=== PATIENT | female | born 1955 | race Caucasian/White ===

== ENCOUNTER 2017-01-12 13:26 | Outpatient (CLI) | payer SELFPAY | END 2017-01-12 23:59 | DX: K21.9 Gastro-esophageal reflux disease without esophagitis (principal) ==

== ENCOUNTER 2017-01-15 13:28 | Outpatient (CLI) | payer SELFPAY | END 2017-01-15 13:29 | disposition home or self-care (01) | DX: R19.7 Diarrhea, unspecified (principal) ==

== ENCOUNTER 2019-01-23 10:21 | Outpatient (CLI) | payer SELFPAY ==
--- NOTE | 2019-01-23 12:15 | XRAY Report ---
Reason: R ANKLE PAIN Procedure Date: 01/23/2019 Accession Number: [id number] / [id number] Procedure: XRN - Ankle 3 View RT CPT Code: FULL RESULT: EXAM: RIGHT ANKLE RADIOGRAPHY EXAM DATE: 01/23/2019 10:56 AM. CLINICAL HISTORY: Right ankle pain. COMPARISON: None. TECHNIQUE: 3 views. FINDINGS: Bones: There is mild inferior calcaneal spurring. There is a nonacute appearing nonunited fracture fragment at the distal tip of the fibula. Joints: Normal. No effusion. No subluxations. The ankle mortise is normally aligned. Soft Tissues: Soft tissue swelling is noted about the lateral ankle. IMPRESSION: Suspect acute on chronic ligamentous injury in the region of previous trauma along the lateral ankle. RADIA
== END 2019-01-23 10:22 | disposition home or self-care (01) ==
LOC: DI.N 10:21
PROVIDERS: ATTEND Specialist
DX: M25.571 Pain in right ankle and joints of right foot (principal)

== ENCOUNTER 2019-02-08 11:32 | Outpatient (CLI) | payer SELFPAY ==
--- NOTE | 2019-02-09 19:50 | XRAY Report ---
Reason: RIGHT FIBULA PAIN Procedure Date: 02/08/2019 Accession Number: [id number] / [id number] Procedure: XR - Tib/Fib RT CPT Code: FULL RESULT: EXAM: RIGHT TIBIA/FIBULA RADIOGRAPHY EXAM DATE: 02/08/2019 11:48 AM. CLINICAL HISTORY: RIGHT FIBULA PAIN. COMPARISON: ANKLE 3 VIEW RT 01/23/2019 10:56 AM. TECHNIQUE: 2 views. FINDINGS: Bones: Well-corticated ossicle seen inferior to the medial and lateral malleoli. No acute appearing fracture. No bone lesion. Plantar spur. Suspect variant angulation of the proximal fibula. Joints: No Dislocation. Preserved joint spaces. Soft Tissues: Ankle swelling, greatest laterally IMPRESSION: 1. No acute appearing fracture. No bone lesion. 2. Well-corticated ossicle seen inferior to the medial and lateral malleoli may be sequela of remote trauma. 3. Ankle swelling, greatest laterally RADIA
== END 2019-02-08 11:33 | disposition home or self-care (01) ==
LOC: DI 11:32
PROVIDERS: ATTEND Specialist
DX: M79.661 Pain in right lower leg (principal); M25.471 Effusion, right ankle

== ENCOUNTER 2019-12-22 16:47 | Outpatient (CLI) | payer OTHER | END 2019-12-22 16:48 | disposition home or self-care (01) | LOC: COV 16:47 | PROVIDERS: ATTEND Family Medicine | DX: R05 Cough (principal); R50.9 Fever, unspecified | CPT/HCPCS: 81599 ==

== ENCOUNTER 2020-01-30 12:45 | Outpatient (CLI) | payer OTHER ==
[2020-01-30 17:51] LABS: BASOPHILS # (AUTO) 0.1 10^3/uL (0.0-0.1); BASOPHILS % (AUTO) 0.8 %; EOSINOPHILS # (AUTO) 0.2 10^3/uL (0.0-0.7); EOSINOPHILS % (AUTO) 2.3 %; HGB - HEMOGLOBIN 13.9 g/dL (12.0-16.0); LYMPHOCYTES # (AUTO) 2.3 10^3/uL (1.5-3.5); LYMPHOCYTES % (AUTO) 30.2 %; MEAN CORPUSCULAR HEMOGLOBIN 28.3 pg (27.0-31.0); MEAN CORPUSCULAR HGB CONC 31.9 g/dL (32.0-36.0); MEAN CORPUSCULAR VOLUME 88.8 fL (81.0-99.0); MEAN PLATELET VOLUME 9.6 fL (7.9-10.8); MONOCYTES # (AUTO) 0.7 10^3/uL (0.0-1.0); MONOCYTES % (AUTO) 8.6 %; NEUTROPHILS # (AUTO) 4.4 10^3/uL (1.5-6.6); NEUTROPHILS % (AUTO) 57.7 %; PLT - PLATELET COUNT 372 10^3/uL (130-450); RED BLOOD COUNT 4.91 10^6/uL (4.20-5.40); RED CELL DISTRIBUTION WIDTH 12.9 % (12.0-15.0); WHITE BLOOD COUNT 7.7 x10^3/uL (4.8-10.8)
[2020-01-30 18:02] LABS: CALCIUM 9.4 mg/dL (8.5-10.3); CREATININE 0.8 mg/dL (0.4-1.0)
== END 2020-01-30 23:59 | disposition home or self-care (01) ==
LOC: LAB.WCP 12:45
PROVIDERS: ATTEND Physician Assistant Medical
DX: R53.83 Other fatigue (principal)
CPT/HCPCS: 36415; 80048; 85025

== ENCOUNTER 2020-08-17 16:44 | Outpatient (CLI) | payer OTHER ==
--- NOTE | 2020-08-17 17:27 | XRAY Report ---
PROCEDURE: Ankle 2 View LT INDICATIONS: L ANKLE PX TECHNIQUE: 2 views of the ankle were acquired. COMPARISON: None FINDINGS: Bones: There is a nondisplaced lucency at the distal fibular tip. In addition, small calcification i s noted adjacent to the distal medial malleolus. Ankle mortise is normally aligned. No suspicious bony lesions. Calcaneal spur is present. Soft tissues: Prominent lateral malleoli or soft tissue edema is present. Achilles tendon appears nor mal. IMPRESSION: Nondisplaced distal fibular fracture. In addition, calcification noted distal to the med ial malleolus is suggestive of old injury or degenerative change given lack of associated edema. Reviewed by: Courtney Plummer MD on 08/17/2020 5:26 PM PST Approved by: Courtney Plummer MD on 08/17/2020 5:26 PM PST Station ID: [id number]
== END 2020-08-17 23:59 | disposition home or self-care (01) ==
LOC: DI.N 16:44
PROVIDERS: ATTEND Nurse Practitioner
DX: S82.832A Other fracture of upper and lower end of left fibula, initial encounter for closed fracture (principal)

== ENCOUNTER 2020-10-04 11:35 | Outpatient (CLI) | payer OTHER ==
--- NOTE | 2020-10-04 16:44 | XRAY Report ---
PROCEDURE: Ankle 3 View LT INDICATIONS: NONDISPLACED FX OF LATERAL MALLEOLUS OF L FIBULA TECHNIQUE: 3 views of the ankle were acquired. COMPARISON: 08/17/2020 FINDINGS: Lateral malleolar fracture in unchanged alignment. Plantar and posterior calcaneal spurring. Scattered subchondral sclerosis and spurring. Soft tissues: Lateral soft tissue swelling has improved IMPRESSION: Unchanged alignment Reviewed by: Silas Jade MD on 10/04/2020 4:43 PM PST Approved by: Silas Jade MD on 10/04/2020 4:43 PM PST Station ID: [id number]
--- NOTE | 2020-10-04 16:51 | XRAY Report ---
PROCEDURE: Foot 2 View RT INDICATIONS: R FOOT PX TECHNIQUE: 2 views of the foot were acquired. COMPARISON: None. FINDINGS: Bones: Postsurgical changes are noted in first metatarsal head from prior bunionectomy. Mild first MT P joint and interphalangeal joint osteoarthritic changes are seen. Old healed fifth metatarsal neck f racture is seen. No acute fractures or dislocations. No suspicious bony lesions. Well-defined plant ar calcaneal enthesophyte is noted. Soft tissues: No tibiotalar joint effusion. Achilles tendon appears normal. IMPRESSION: Prior bunionectomy in right great toe with post surgical changes and mild first MTP joint osteoarthri tis. Small plantar calcaneal enthesophyte. Old healed fifth metatarsal neck fracture. No acute right foot fracture or dislocation. Reviewed by: Deandre Rowland MD on 10/04/2020 4:49 PM PST Approved by: Deandre Rowland MD on 10/04/2020 4:49 PM PST Station ID: [id number]
== END 2020-10-04 23:59 | disposition home or self-care (01) ==
LOC: DI.N 11:35
PROVIDERS: ATTEND Physician Assistant
DX: S82.65XS Nondisplaced fracture of lateral malleolus of left fibula, sequela (principal); M19.071 Primary osteoarthritis, right ankle and foot; M77.31 Calcaneal spur, right foot

== ENCOUNTER 2020-11-09 10:54 | Outpatient (CLI) | payer OTHER ==
--- NOTE | 2020-11-09 13:54 | DEXA Report ---
PROCEDURE: Dexa Spine and/or Hip INDICATIONS: POSTMENOPAUSAL TECHNIQUE: Dual energy x-ray absorptiometry (DXA) was performed on a [employer] System. Regions measur ed are the AP Spine, femoral neck, and if needed forearm. COMPARISON: None. FINDINGS: Lumbar Spine: Bone Mineral Density 1.391 g/cm/cm,T score 1.8, normal Left Femoral Neck: Bone Mineral Density 1.063 g/cm/cm, T score 0.4, normal (T score greater or equal to -1.0: NORMAL) (T score from -1.1 to -2.4: OSTEOPENIA) (T score less than or equal to -2.5 to: OSTEOPOROSIS) Impression: Normal bone mineral density. Patients with diagnosis of osteoporosis or osteopenia should have regular bone mineral density assess ment. For those eligible for Medicare, routine testing is allowed once every 2 years. Testing frequ ency can be increased for patients who have rapidly progressing disease or for those who are receivin g medical therapy to restore bone mass. Reviewed by: Santi Costa MD on 11/09/2020 1:52 PM PST Approved by: Santi Costa MD on 11/09/2020 1:52 PM PST Station ID: [id number]
== END 2020-11-09 10:55 | disposition home or self-care (01) ==
LOC: DI 10:54
PROVIDERS: ATTEND Family Medicine
DX: Z78.0 Asymptomatic menopausal state (principal)

== ENCOUNTER 2020-11-16 15:28 | Outpatient (CLI) | payer OTHER ==
--- NOTE | 2020-11-18 05:18 | Mammography Report ---
BILATERAL DIGITAL SCREENING MAMMOGRAM 3D/2D: 11/16/2020 CLINICAL: Routine screening. Comparison is made to exams dated: 04/13/2014 mammogram and 08/16/2012 mammogram - [facility]. There are scattered fibroglandular elements in both breasts. There is a biopsy clip in the left breast. No significant masses, calcifications, or other findings are seen in either breast. There has been no significant interval change. IMPRESSION: NEGATIVE There is no mammographic evidence of malignancy. A 1 year screening mammogram is recommended. This exam was interpreted at Station ID: [id number]. NOTE: For mammograms, a report in lay terms will be sent to the patient. Approximately 15% of breast malignancies will not be visualized mammographically. In the management of a palpable breast mass, a negative mammogram must not discourage biopsy of a clinically suspicious lesion. Electronically Signed By: Jona Prajapati M.D. [email or web address]:11/16/2020 16:14:09 ACR BI-RADS Category 1: Negative 3341F PARENCHYMAL PATTERN: (A) - The breast(s) demonstrate(s) scattered fibroglandular densities. BI-RADS CATEGORY: (1) - 1 RECOMMENDATION: (ANNUAL) - Recommend routine annual screening mammography. [id number] 1 year screening LATERALITY: (B)
== END 2020-11-16 15:29 | disposition home or self-care (01) ==
LOC: DI.N 15:28
PROVIDERS: ATTEND Family Medicine
DX: Z12.31 Encounter for screening mammogram for malignant neoplasm of breast (principal)

== ENCOUNTER 2021-06-20 08:00 | Outpatient (CLI) | payer OTHER ==
[2021-06-20 12:02] LABS: BASOPHILS # (AUTO) 0.1 10^3/uL (0.0-0.1); BASOPHILS % (AUTO) 0.8 %; EOSINOPHILS # (AUTO) 0.2 10^3/uL (0.0-0.7); EOSINOPHILS % (AUTO) 2.3 %; HCT - HEMATOCRIT 44.6 % (37.0-47.0); HGB - HEMOGLOBIN 14.3 g/dL (12.0-16.0); LYMPHOCYTES # (AUTO) 2.3 10^3/uL (1.5-3.5); MEAN CORPUSCULAR HEMOGLOBIN 28.7 pg (27.0-31.0); MEAN CORPUSCULAR HGB CONC 32.1 g/dL (32.0-36.0); MEAN CORPUSCULAR VOLUME 89.4 fL (81.0-99.0); MEAN PLATELET VOLUME 10.1 fL (7.9-10.8); MONOCYTES # (AUTO) 0.5 10^3/uL (0.0-1.0); MONOCYTES % (AUTO) 7.3 %; NEUTROPHILS # (AUTO) 3.6 10^3/uL (1.5-6.6); NEUTROPHILS % (AUTO) 54.4 %; PLT - PLATELET COUNT 342 10^3/uL (130-450); RED BLOOD COUNT 4.99 10^6/uL (4.20-5.40); WHITE BLOOD COUNT 6.6 x10^3/uL (4.8-10.8)
[2021-06-20 12:34] LABS: ALBUMIN 4.4 g/dL (3.2-5.5); ALBUMIN/GLOBULIN RATIO 1.8 (1.0-2.2); ALKALINE PHOSPHATASE 70 IU/L (42-121); ALT ALANINE AMINOTRANSFERASE 20 IU/L (10-60); AST ASPARTATE AMINOTRANSFERASE 25 IU/L (10-42); BUN - BLOOD UREA NITROGEN 19 mg/dL (6-20); CALCIUM 9.4 mg/dL (8.5-10.3); CARBON DIOXIDE - CO2 27 mmol/L (21-32); CHLORIDE 107 mmol/L (101-111); CHOL/HDL RATIO 2.7 (<4.4); CHOLESTEROL 171 mg/dL; CREATININE 0.8 mg/dL (0.4-1.0); GFR - MDRD 72 (>89); GLUCOSE 108 mg/dL (70-100); HDL CHOLESTEROL 63 mg/dL; LDL CHOLESTEROL,CALCULATED 93 mg/dL; LDL/HDL RATIO 1.5 (<4.4); SODIUM 144 mmol/L (135-145); TOTAL PROTEIN 6.9 g/dL (6.7-8.2); TRIGLYCERIDES 77 mg/dL; VLDL CHOLESTEROL 15 mg/dL
[2021-06-20 12:50] LABS: THYROID STIMULATING HORMONE 3.09 uIU/mL (0.34-5.60)
== END 2021-06-20 23:59 | disposition home or self-care (01) ==
LOC: LAB.WCP 08:00
PROVIDERS: ATTEND Family Medicine
DX: E66.9 Obesity, unspecified (principal); M53.3 Sacrococcygeal disorders, not elsewhere classified; K58.0 Irritable bowel syndrome with diarrhea
CPT/HCPCS: 36415; 80053; 80061; 83721; 84443; 85025

== ENCOUNTER 2021-07-08 08:00 | Outpatient (CLI) | payer OTHER | END 2021-07-08 23:59 | disposition home or self-care (01) | LOC: LAB.N 08:00 | PROVIDERS: ATTEND Family Medicine | DX: N39.0 Urinary tract infection, site not specified (principal) | CPT/HCPCS: 87086; 87181 ==

== ENCOUNTER 2021-09-13 12:28 | Day surgery (SDC) | payer OTHER ==
[2021-09-13] MEDS ORDERED: LACTATED RINGERS 1,000 ML IV ONE ×2 (12:33→14:40)
--- NOTE | 2021-09-13 13:31 | ANESTHESIA ---
Pre-Anesthesia VS, & Labs - Diagnosis screening exam - Procedure colonoscopy Vital Signs: Temp Pulse Resp BP Pulse Ox 36 C L 64 18 136/66 H 99 09/13/21 12:35 09/13/21 12:35 09/13/21 12:35 09/13/21 12:35 09/13/21 12:35 Height: 5 ft 3 in Weight (kg): 87.6 kg Body Mass Index: 34.2 BMI Classification: Obese - NPO >8 hours - Is Patient ?: No Home Medications and Allergies Home Medications: Ambulatory Orders Cholecalciferol [Vitamin D3] 1 tab PO DAILY 09/13/21 Cholecalciferol [Vitamin D3] 1 tab PO DAILY 09/13/21 Allergies/Adverse Reactions: Allergies Allergy/AdvReac Type Severity Reaction Status Date / Time sulfamethoxazole Allergy Mild Rash Verified 09/12/21 13:38 [From ] trimethoprim [From ] Allergy Mild Rash Verified 09/12/21 13:38 Anes History & Medical History - Anesthetic History Anesthesia Complications: reports: No previous complications - Medical History Cardiovascular: reports: None Pulmonary: reports: None Gastrointestinal: reports: Colon polyps Urinary: reports: Incontinence Neuro: reports: None Musculoskeletal: reports: None Endocrine/Autoimmune: reports: None Blood Disorders: reports: None Smoking Status: Never smoker Psychosocial: reports: Depression History of Cancer?: No - Surgical History General: reports: Colonoscopy Eyes Ears Nose Throat (EENT): reports: Tonsil/Adenoidectomy, Other Gynecologic: reports: 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 Orthopedic: reports: Other Exam General: Alert, Oriented x3, Cooperative, No acute distress Dental: WNL Mouth Openin Fingerbreadth Neck Mobility: Normal Mallampati classification: II Mental/Cognitive Status: Alert/Oriented X3, Normal for patient Plan Anesthesia Type: Total IV Consent for Procedure(s) Verified and Reviewed: Yes Code Status: Attempt Resuscitation ASA classification: 2-Mild systemic disease Is this case an emergency?: No
[2021-09-13] MEDS ORDERED: MIDAZOLAM 2 MG/2 ML VIAL ONE (14:05)
[2021-09-13] MEDS ORDERED: PROPOFOL 500 MG/50 ML 500 MG/50 ML VIAL ONE (14:05)
[2021-09-13] MEDS ORDERED: fentaNYL 100 MCG/2 ML VIAL ONE (14:05)
[2021-09-13 15:14] VITALS: BP 142/83
--- NOTE | 2021-09-13 17:48 | ANESTHESIA POST OP EVALUATION ---
Anesthesia Post Eval - Post Anesthesia Eval Vitals: Last Vital Signs Temp 36.4 C L 09/13/21 15:13 Pulse 68 09/13/21 15:13 Resp 18 09/13/21 15:13 BP 142/83 H 09/13/21 15:13 Pulse Ox 97 09/13/21 15:13 CV Function Including HR & BP: Stable Pain Control: Satisfactory Nausea & Vomiting: Negative Mental Status: Baseline Respiratory Status: Airway Patent Hydration Status: Satisfactory Anesthesia Complications: None
== END 2021-09-13 12:29 | disposition home or self-care (01) ==
LOC: SDS 12:28
PROVIDERS: ATTEND Surgery
PROC: 0DBN8ZZ Excision of Sigmoid Colon, Via Natural or Artificial Opening Endoscopic (ICD-10-PCS; 2021-09-13)
PROC: 0DBM8ZZ Excision of Descending Colon, Via Natural or Artificial Opening Endoscopic (ICD-10-PCS; principal; 2021-09-13 13:45)
DX: Z12.11 Encounter for screening for malignant neoplasm of colon (principal); D12.4 Benign neoplasm of descending colon; D12.5 Benign neoplasm of sigmoid colon; D17.79 Benign lipomatous neoplasm of other sites; K64.8 Other hemorrhoids; E66.9 Obesity, unspecified; Z68.34 Body mass index [BMI] 34.0-34.9, adult; R06.09 Other forms of dyspnea
CPT/HCPCS: 45380; J7120

== ENCOUNTER 2021-09-26 08:15 | Day surgery (SDC) | payer OTHER ==
[~2021-09-26 08:15] MED LIST: CEFAZOLIN SODIUM IN 0.9 % NACL 2 GM/100 ML BAG IV ONE
[2021-09-26] MEDS ORDERED: LIDOCAINE MPF 2%-EPI 1:200000 20 ML VIAL ONE (08:42)
[2021-09-26] MEDS ORDERED: BUPIVACAINE 0.5% PF 10 ML VIAL ONE (08:43)
[2021-09-26] MEDS ORDERED: ceFAZolin 1 GM VIAL ONE (08:43)
[2021-09-26] MEDS ORDERED: LACTATED RINGERS 1,000 ML IV ONE ×2 (08:48→10:24)
--- NOTE | 2021-09-26 08:50 | ANESTHESIA ---
Pre-Anesthesia VS, & Labs - Diagnosis umbilical hernia - Procedure umbilical hernia repair Vital Signs: Temp Pulse Resp BP Pulse Ox 36 C L 65 16 128/80 100 09/26/21 08:28 09/26/21 08:28 09/26/21 08:28 09/26/21 08:28 09/26/21 08:28 Height: 5 ft 3 in Weight (kg): 88.9 kg Body Mass Index: 34.7 BMI Classification: Obese - NPO >8 hours - Is Patient ?: No Home Medications and Allergies Cholecalciferol [Vitamin D3] 1 tab PO DAILY 09/13/21 Allergies/Adverse Reactions: Allergies Allergy/AdvReac Type Severity Reaction Status Date / Time sulfamethoxazole Allergy Mild Rash Verified 09/12/21 13:38 [From ] trimethoprim [From ] Allergy Mild Rash Verified 09/12/21 13:38 Anes History & Medical History - Anesthetic History Anesthesia Complications: reports: No previous complications - Medical History Cardiovascular: reports: None Pulmonary: reports: None Gastrointestinal: reports: None, Other Urinary: reports: Incontinence Neuro: reports: None Musculoskeletal: reports: None Endocrine/Autoimmune: reports: None Blood Disorders: reports: None Smoking Status: Never smoker History of Cancer?: No - Surgical History General: reports: Colonoscopy Eyes Ears Nose Throat (EENT): reports: Tonsil/Adenoidectomy, Other Gynecologic: reports: 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 Orthopedic: reports: Other Exam General: Alert, Oriented x3, Cooperative Dental: WNL Mouth Opening: Greater than 4 Fingerbreadths Neck Mobility: Normal Mallampati classification: I Thyromental Distance: greater than 6 cm Respiratory: Lungs clear Cardiovascular: Regular rate Plan Anesthesia Type: General Consent for Procedure(s) Verified and Reviewed: Yes Code Status: Attempt Resuscitation ASA classification: 2-Mild systemic disease Is this case an emergency?: No
[2021-09-26] MEDS ORDERED: ONDANSETRON 4 MG/2 ML VIAL IVP PRN ×2 (09:03→10:22)
[2021-09-26] MEDS ORDERED: NALOXONE 0.4 MG/ML VIAL IVP PRN (09:03)
[2021-09-26] MEDS ORDERED: ATROPINE ABBOJECT 1 MG/10 ML SYRINGE IVP PRN (09:03)
[2021-09-26] MEDS ORDERED: HYDROmorphone 0.5 MG/0.5 ML SYRINGE IVP PRN (09:03)
[2021-09-26] MEDS ORDERED: fentaNYL 100 MCG/2 ML VIAL IVP PRN (09:03)
[2021-09-26] MEDS ORDERED: MORPHINE 2 MG/ML CARPUJECT IVP PRN (09:03)
[2021-09-26] MEDS ORDERED: METOCLOPRAMIDE 10 MG/2 ML VIAL IVP PRN (09:03)
[2021-09-26] MEDS ORDERED: ePHEDrine 50 MG/ML VIAL IVP PRN (09:03)
[2021-09-26] MEDS ORDERED: ROCURONIUM 50 MG/5 ML VIAL ONE (09:13)
[2021-09-26] MEDS ORDERED: MIDAZOLAM 2 MG/2 ML VIAL ONE (09:13)
[2021-09-26] MEDS ORDERED: DEXAMETHASONE 4 MG/ML VIAL ONE (09:45)
[2021-09-26] MEDS ORDERED: ONDANSETRON 4 MG/2 ML VIAL ONE (09:45)
[2021-09-26] MEDS ORDERED: LIDOCAINE MPF 2%-EPI 1:200000 20 ML VIAL SUBQ ONE (09:47)
[2021-09-26] MEDS ORDERED: ceFAZolin 1 GM VIAL IR ONE (09:47)
[2021-09-26] MEDS ORDERED: BUPIVACAINE 0.5% PF 10 ML VIAL SUBQ ONE (09:47)
[2021-09-26] MEDS ORDERED: ACETAMINOPHEN 1,000 MG/100 ML 100 ML IV ONE (09:58)
[2021-09-26] MEDS ORDERED: LACTATED RINGERS 1,000 ML IV SCH (10:00)
[2021-09-26] MEDS ORDERED: SUGAMMADEX 200 MG/2 ML VIAL IVP ONE (10:16)
--- NOTE | 2021-09-26 10:20 | OPERATIVE REPORT ---
Operative Report - General Procedure Date: 09/26/21 Planned Procedure: Umbilical hernia repair Pre-Op Diagnosis: Incarcerated umbilical hernia Procedure Performed: Umbilical hernia repair with Ventralex mesh Post Op Diagnosis: Incarcerated umbilical hernia - Procedure Note Primary Surgeon: Mariza Anesthesia Provider: DORIAN Maya Anesthesia Technique: General ET tube Pathology: None Estimated Blood Loss (mL): 10 Indications: Incarcerated umbilical hernia Findings: 2 cm umbilical defect Complications: None apparent - Other Other Information/Narrative: After obtaining informed consent, the patient is brought to the operating room and placed in the supine position on the operating table. Following successful induction of general endotracheal anesthesia, appropriate padding of all bony prominences, and placement of appropriate monitors, the abdomen was prepped and draped in the standard surgical fashion. A timeout was held per scope protocol. All elements of the surgical safety checklist were followed before, during, and after the procedure. Following infiltration with local anesthetic to create a field block, an incision was created directly through the umbilicus and over the palpable and visible defect. This was carried through the skin and subcutaneous tissue. The umbilical tissue was then freed from the umbilical remnant for complete exposure to the hernia sack. The defect was noted to be approximately 2.0 cm in greatest dimension. The hernia sac itself was approximately 4 cm. The hernia sac was carefully dissected free from the overlying skin and underlying fascial tissue as well as the surrounding areolar tissue. The contents of the sac were eased back into the abdominal cavity. The surgeon's finger was then inserted into the defect and the anterior abdominal wall palpated internally to be sure there was enough space for mesh placement and no additional adhesiolysis required. We elected to repair the defect with a 8 cm a portion of Ventralex ST mesh. The mesh was dipped in Ancef solution and into the defect. It was straightened and flattened in the preperitoneal space. Placement was checked and adjusted. Once we were satisfied it was ideal, the tails were trimmed and sewn to the fascia anteriorly. The wound was checked for hemostasis and irrigated with Ancef containing solution The umbilicus was reconstructed with interrupted Vicryl suture. The incision was closed in layers with Vicryl and Monocryl suture and Dermabond was applied to the skin. All sponge, needle, and instrument counts were correct at the conclusion of the case. The patient was allowed awaken from anesthesia without difficulty and taken to the postanesthesia care unit in good condition.
[2021-09-26] MEDS ORDERED: IBUPROFEN 600 MG TABLET PO PRN (10:22)
[2021-09-26] MEDS ORDERED: oxyCODONE 5 MG TABLET PO PRN (10:22)
[2021-09-26] MEDS ORDERED: ACETAMINOPHEN 325 MG TABLET PO PRN (10:22)
--- NOTE | 2021-09-26 11:08 | ANESTHESIA POST OP EVALUATION ---
Anesthesia Post Eval - Post Anesthesia Eval Vitals: Last Vital Signs Temp 36.8 C 09/26/21 10:57 Pulse 69 09/26/21 11:01 Resp 12 09/26/21 11:01 BP 153/79 H 09/26/21 11:01 Pulse Ox 93 09/26/21 11:01 CV Function Including HR & BP: Stable Pain Control: Satisfactory Nausea & Vomiting: Negative Mental Status: Baseline Respiratory Status: Airway Patent Hydration Status: Satisfactory Anesthesia Complications: None
[2021-09-26 11:46] VITALS: BP 130/75
[2021-09-26] MEDS ORDERED: oxyCODONE 5 MG TABLET ONE (11:54)
== END 2021-09-26 08:16 | disposition home or self-care (01) ==
LOC: SDS 08:15
PROVIDERS: ATTEND Surgery
DX: K42.0 Umbilical hernia with obstruction, without gangrene (principal); E66.9 Obesity, unspecified; Z68.34 Body mass index [BMI] 34.0-34.9, adult
CPT/HCPCS: 49587; A9270; C1781; J0131; J0690; J7120

== ENCOUNTER 2023-04-30 07:35 | Outpatient (CLI) | payer OTHER ==
[2023-04-30 12:12] LABS: BASOPHILS # (AUTO) 0.1 10^3/uL (0.0-0.1); BASOPHILS % (AUTO) 0.8 %; EOSINOPHILS # (AUTO) 0.2 10^3/uL (0.0-0.7); EOSINOPHILS % (AUTO) 2.3 %; HCT - HEMATOCRIT 44.9 % (37.0-47.0); HGB - HEMOGLOBIN 14.1 g/dL (12.0-16.0); LYMPHOCYTES # (AUTO) 2.4 10^3/uL (1.5-3.5); LYMPHOCYTES % (AUTO) 32.7 %; MEAN CORPUSCULAR HEMOGLOBIN 28.1 pg (27.0-31.0); MEAN CORPUSCULAR HGB CONC 31.4 g/dL (32.0-36.0); MEAN CORPUSCULAR VOLUME 89.4 fL (81.0-99.0); MEAN PLATELET VOLUME 9.6 fL (7.9-10.8); MONOCYTES # (AUTO) 0.5 10^3/uL (0.0-1.0); MONOCYTES % (AUTO) 6.9 %; NEUTROPHILS # (AUTO) 4.2 10^3/uL (1.5-6.6); PLT - PLATELET COUNT 370 10^3/uL (130-450); RED BLOOD COUNT 5.02 10^6/uL (4.20-5.40); WHITE BLOOD COUNT 7.4 x10^3/uL (4.8-10.8)
[2023-04-30 12:28] LABS: ALBUMIN 4.3 g/dL (3.2-5.5); ALBUMIN/GLOBULIN RATIO 1.6 (1.0-2.2); ALKALINE PHOSPHATASE 85 IU/L (42-121); ALT ALANINE AMINOTRANSFERASE 19 IU/L (10-60); AST ASPARTATE AMINOTRANSFERASE 19 IU/L (10-42); BILIRUBIN,TOTAL 0.6 mg/dL (0.2-1.0); BUN - BLOOD UREA NITROGEN 16 mg/dL (6-20); CALCIUM 9.5 mg/dL (8.5-10.3); CARBON DIOXIDE - CO2 31 mmol/L (21-32); CHLORIDE 109 mmol/L (101-111); CHOL/HDL RATIO 2.7 (<4.4); CHOLESTEROL 168 mg/dL; CREATININE 0.8 mg/dL (0.6-1.3); GFR - MDRD 72 (>89); GLUCOSE 97 mg/dL (74-104); HDL CHOLESTEROL 62 mg/dL; LDL CHOLESTEROL,CALCULATED 87 mg/dL; LDL/HDL RATIO 1.4 (<4.4); POTASSIUM 4.2 mmol/L (3.5-4.5); SODIUM 143 mmol/L (135-145); TRIGLYCERIDES 97 mg/dL (48-352); VLDL CHOLESTEROL 19 mg/dL
[2023-04-30 14:30] LABS: ESTIMATED AVERAGE GLUCOSE 105 mg/dL (70-100); HEMOGLOBIN A1c% 5.3 % (4.27-6.07)
== END 2023-04-30 07:36 | disposition home or self-care (01) ==
LOC: LAB.N 07:35
PROVIDERS: ATTEND Family Medicine
DX: Z00.00 Encounter for general adult medical examination without abnormal findings (principal); R73.9 Hyperglycemia, unspecified
CPT/HCPCS: 36415; 80053; 80061; 83036; 83721; 84443; 85025

== ENCOUNTER 2023-05-19 05:54 | Emergency (ER) | payer MEDICARE, OTHER ==
[2023-05-19] MEDS ORDERED: ONDANSETRON 4 MG/2 ML VIAL IVP STA (06:27)
[2023-05-19] MEDS ORDERED: SODIUM CHLORIDE 0.9% 1,000 ML IV STA (06:28)
[2023-05-19 06:35] LABS: BASOPHILS % (AUTO) 0.4 %; EOSINOPHILS % (AUTO) 0.3 %; HCT - HEMATOCRIT 45.1 % (37.0-47.0); HGB - HEMOGLOBIN 14.6 g/dL (12.0-16.0); LYMPHOCYTES # (AUTO) 1.9 10^3/uL (1.5-3.5); LYMPHOCYTES % (AUTO) 18.6 %; MEAN CORPUSCULAR HGB CONC 32.4 g/dL (32.0-36.0); MEAN CORPUSCULAR VOLUME 86.4 fL (81.0-99.0); MEAN PLATELET VOLUME 8.9 fL (7.9-10.8); MONOCYTES # (AUTO) 0.5 10^3/uL (0.0-1.0); MONOCYTES % (AUTO) 4.7 %; NEUTROPHILS # (AUTO) 7.9 10^3/uL (1.5-6.6); NEUTROPHILS % (AUTO) 75.8 %; PLT - PLATELET COUNT 399 10^3/uL (130-450); RED BLOOD COUNT 5.22 10^6/uL (4.20-5.40); RED CELL DISTRIBUTION WIDTH 12.5 % (12.0-15.0); WHITE BLOOD COUNT 10.4 x10^3/uL (4.8-10.8)
[2023-05-19 06:39] LABS: BILIRUBIN,URINE NEGATIVE (NEGATIVE); GLUCOSE, URINE (UA) NEGATIVE (NEGATIVE); KETONES,URINE (UA) NEGATIVE (NEGATIVE); LEUKOCYTE ESTERASE, URINE NEGATIVE (NEGATIVE); NITRITE,URINE NEGATIVE (NEGATIVE); OCCULT BLOOD,URINE TRACE-INTA (NEGATIVE); PROTEIN,URINE NEGATIVE (NEGATIVE); UROBILINOGEN,URINE 0.2 (NORMAL) E.U./dL (NORMAL)
[2023-05-19] MEDS ORDERED: LORazepam 0.5 MG TABLET PO STA (06:39)
[2023-05-19 06:41] LABS: CLARITY,URINE CLEAR (CLEAR)
--- NOTE | 2023-05-19 06:42 | ED Physician Documentation ---
History of Present Illness - Stated complaint Stated Complaint: DEHYDRATION/NAUSEA, WEAK/ABD PX - Chief complaint Chief Complaint: Abd Pain - History obtained from History obtained from: Patient - Additonal information Additional information: 67yF with pmh depression, IBS, p/w self-described "jitters" and inability to sleep after restarting paxil this week, having taken it from [id number] and now finding she's under increased stress at work and felt she needed SSRI. Patient is taking 10mg paxil. also with nausea, generalized weakness, and cramping suprapubic abdominal pain. denies fever, diarrhea, back pain. patient had shingles of the eye last week and has finished her antiviral treatment. PD PAST MEDICAL HISTORY - Past Medical History Past Medical History: Yes Cardiovascular: None Respiratory: None Neuro: None Endocrine/Autoimmune: None GI: Other : Incontinence HEENT: Chronic sinusitis, Other Psych: None Musculoskeletal: None Other Past Medical History: Recent eye shingles: IBS - Past Surgical History Past Surgical History: Yes Ortho: Other /[employer]: 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 HEENT: Tonsil/Adenoidectomy, Other - Present Medications Home Medications: Ambulatory Orders Medication Instructions Recorded Confirmed Cholecalciferol [Vitamin D3] 1 tab PO DAILY 09/13/21 05/19/23 Erythromycin Base [Erythromycin 1 applic EACHEYE QPM 05/19/23 05/19/23 Ophthalmic Ointment] Ganciclovir [Zirgan] 1 applic EACHEYE TID 05/19/23 05/19/23 PARoxetine HCL [Paxil] 10 mg PO DAILY 05/19/23 05/19/23 - Allergies Allergies/Adverse Reactions: Allergies Allergy/AdvReac Type Severity Reaction Status Date / Time sulfamethoxazole Allergy Mild Rash Verified 05/19/23 06:09 [From ] trimethoprim [From ] Allergy Mild Rash Verified 05/19/23 06:09 - Social History Does the pt smoke?: No Smoking Status: Never smoker Does the pt drink ETOH?: No Does the pt have substance abuse?: No - Immunizations Immunizations are current?: Yes - POLST Patient has POLST: No PD ED PE NORMAL - Vitals Vital signs reviewed: Yes - General General: Alert and oriented X 3, No acute distress, Well developed/nourished - HEENT HEENT: Atraumatic, PERRL, EOMI, Moist mucous membranes, Pharynx benign - Neck Neck: Supple, no meningeal sign - Cardiac Cardiac: RRR - Respiratory Respiratory: No respiratory distress, Clear bilaterally - Abdomen Abdomen: Non tender, Non distended - Derm Derm: Normal color, Warm and dry - Neuro Neuro: Alert and oriented X 3 - Psych Psych: Other (depressed affect) Results - Vitals Vitals: Vital Signs - 24 hr 05/19/23 05/19/23 06:00 06:54 Temperature 36.8 C Heart Rate 74 72 Respiratory 16 14 Rate Blood Pressure 161/91 H 158/78 H O2 Saturation 97 96 Oxygen O2 Source Room air - Labs Labs: Laboratory Tests 05/19/23 05/19/23 05/19/23 06:20 06:32 06:32 WBC 10.4 RBC 5.22 Hgb 14.6 Hct 45.1 MCV 86.4 MCH 28.0 MCHC 32.4 RDW 12.5 Plt Count 399 MPV 8.9 Neut # (Auto) 7.9 H Lymph # (Auto) 1.9 [place] # (Auto) 0.5 Eos # (Auto) 0.0 Baso # (Auto) 0.0 Absolute Nucleated RBC 0.00 Nucleated RBC % 0.0 Sodium 139 Potassium 3.6 Chloride 106 Carbon Dioxide 27 Anion Gap 6.0 BUN 13 Creatinine 0.8 Estimated GFR (MDRD) 72 L Glucose 130 H Calcium 9.7 Total Bilirubin 0.7 AST 20 ALT 16 Alkaline Phosphatase 90 Total Protein 7.6 Albumin 4.6 Globulin 3.0 Albumin/Globulin Ratio 1.5 Lipase 13 Urine Color YELLOW Urine Clarity CLEAR Urine pH 6.0 Ur Specific [place] 1.025 Urine Protein NEGATIVE Urine Glucose (UA) NEGATIVE Urine Ketones NEGATIVE Urine Occult Blood TRACE-INTA Urine Nitrite NEGATIVE Urine Bilirubin NEGATIVE Urine Urobilinogen 0.2 (NORMAL) Ur Leukocyte Esterase NEGATIVE Ur Microscopic Review NOT INDICATED Urine Culture Comments NOT INDICATED PD Medical Decision Making - ED course ED course: 67yF presents with multiple medical complaints including jitteriness, nausea, generalized weakness and malaise, in the setting of restarting her SSRI last week. I suspect some if not most of her symptoms are mediated by side effects of paxil reaching steady state in the body. Plan to obtain cbc, abdominal panel to evaluate for other pathology. IVF, oral ativan, and IV zofran administered for s ymptom management. Patient endorsed to Dr. Schultz at 7am shift change pending labwork and reevaluation s/p ativan, zofran and fluids. Departure - Departure Clinical Impression: Nausea, Malaise, Insomnia, Feeling jittery Comments: You were seen in the emergency department for medical evaluation. Your labwork and exam was normal. You got a dose of ativan (relaxing medicine) and zofran (nausea medicine) to try to counteract some of the symptoms you've been experiencing. Please follow-up with your primary care provider and return to the emergency department if you have any new or worsening symptoms or other concerns. Forms: PCP List
[2023-05-19 06:47] LABS: ALBUMIN 4.6 g/dL (3.2-5.5); ALBUMIN/GLOBULIN RATIO 1.5 (1.0-2.2); BILIRUBIN,TOTAL 0.7 mg/dL (0.2-1.0); CALCIUM 9.7 mg/dL (8.5-10.3); CREATININE 0.8 mg/dL (0.6-1.3); POTASSIUM 3.6 mmol/L (3.5-4.5); TOTAL PROTEIN 7.6 g/dL (6.4-8.9)
[2023-05-19 08:42] VITALS: O2SAT 95
[2023-05-19] MEDS ORDERED: MAG HYDROX/AL HYDROX/SIMETH 30 ML UDC PO STA (08:57)
[2023-05-19 09:37] VITALS: BP 122/62
== END 2023-05-19 09:47 | disposition home or self-care (01) ==
LOC: ED 05:54
DX: R45.0 Nervousness (principal); G47.00 Insomnia, unspecified; R11.0 Nausea; R53.81 Other malaise
CPT/HCPCS: 36415; 80053; 81003; 83690; 85025; 96361; 96374; 99283; A9270; 81001; 87086

== ENCOUNTER 2023-07-09 08:00 | Outpatient (CLI) | payer OTHER ==
[2023-07-09 21:22] LABS: BASOPHILS # (AUTO) 0.1 10^3/uL (0.0-0.1); BASOPHILS % (AUTO) 0.5 %; EOSINOPHILS # (AUTO) 0.1 10^3/uL (0.0-0.7); EOSINOPHILS % (AUTO) 0.8 %; HCT - HEMATOCRIT 46.4 % (37.0-47.0); HGB - HEMOGLOBIN 14.9 g/dL (12.0-16.0); LYMPHOCYTES # (AUTO) 2.1 10^3/uL (1.5-3.5); LYMPHOCYTES % (AUTO) 20.7 %; MEAN CORPUSCULAR HEMOGLOBIN 28.2 pg (27.0-31.0); MEAN CORPUSCULAR HGB CONC 32.1 g/dL (32.0-36.0); MEAN CORPUSCULAR VOLUME 87.9 fL (81.0-99.0); MEAN PLATELET VOLUME 9.9 fL (7.9-10.8); MONOCYTES # (AUTO) 0.9 10^3/uL (0.0-1.0); MONOCYTES % (AUTO) 8.4 %; NEUTROPHILS % (AUTO) 69.3 %; PLT - PLATELET COUNT 390 10^3/uL (130-450); RED BLOOD COUNT 5.28 10^6/uL (4.20-5.40); WHITE BLOOD COUNT 10.1 x10^3/uL (4.8-10.8)
[2023-07-09 21:36] LABS: ALBUMIN 4.7 g/dL (3.2-5.5); ALBUMIN/GLOBULIN RATIO 1.9 (1.0-2.2); BILIRUBIN,TOTAL 0.5 mg/dL (0.2-1.0); CREATININE 0.8 mg/dL (0.6-1.3); TOTAL PROTEIN 7.2 g/dL (6.4-8.9)
== END 2023-07-09 23:59 | disposition home or self-care (01) ==
LOC: LAB.N 08:00
PROVIDERS: ATTEND Emergency Medicine
DX: R10.11 Right upper quadrant pain (principal)
CPT/HCPCS: 36415; 80053; 83690; 85025

== ENCOUNTER 2023-07-14 16:10 | Emergency (ER) | payer OTHER ==
[2023-07-14] MEDS ORDERED: HYDROmorphone 1 MG/ML CARPUJECT IVP STA (16:56)
[2023-07-14] MEDS ORDERED: SODIUM CHLORIDE 0.9% 1,000 ML IV STA (16:56)
[2023-07-14] MEDS ORDERED: PROCHLORPERAZINE 10 MG/2 ML VIAL IVP STA (16:57)
--- NOTE | 2023-07-14 16:59 | ED Physician Documentation ---
History of Present Illness - Stated complaint Stated Complaint: BACK PX,WEAKNESS - Chief complaint Chief Complaint: Abd Pain - Additonal information Additional information: 67-year-old female presents emergency department for evaluation of right back pain with radiation up to the CVA region. Symptoms began about 2 weeks ago. Was seen a local walk-in clinic and was recommend ultrasound follow-up but due to worsening pain they present here today. She has had some nausea and vomiting. Currently taking amoxicillin for what providers believed to be a sinus infection. She also reports constipation but an unwillingness to take umyv-cwn-bigessd laxatives due to nausea and vomiting. No fevers. 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: 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 HEENT: Tonsil/Adenoidectomy, Other - Present Medications Home Medications: Ambulatory Orders Medication Instructions Recorded Confirmed Cholecalciferol [Vitamin D3] 1 tab PO DAILY 09/13/21 05/19/23 Erythromycin Base [Erythromycin 1 applic EACHEYE QPM 05/19/23 05/19/23 Ophthalmic Ointment] Famotidine [Pepcid] 20 mg PO DAILY #15 tablet 05/19/23 Ganciclovir [Zirgan] 1 applic EACHEYE TID 05/19/23 05/19/23 LORazepam [Ativan] 1 mg PO BID PRN #12 tablet 05/19/23 Ondansetron Odt [Zofran] 4 mg TL Q6H PRN #10 tablet 05/19/23 PARoxetine HCL [Paxil] 10 mg PO DAILY 05/19/23 05/19/23 Dicyclomine [Bentyl] 10 mg PO QID PRN #30 cap 07/14/23 Oxycodone HCl/Acetaminophen 1 - 2 each PO Q6H PRN #14 tablet 07/14/23 [Percocet 5-325 mg Tablet] - Allergies Allergies/Adverse Reactions: Allergies Allergy/AdvReac Type Severity Reaction Status Date / Time sulfamethoxazole Allergy Mild Rash Verified 07/14/23 16:21 [From ] trimethoprim [From ] Allergy Mild Rash Verified 07/14/23 16:21 - Social History Does the pt smoke?: No Smoking Status: Never smoker Does the pt drink ETOH?: No Does the pt have substance abuse?: No - Immunizations Immunizations are current?: Yes - POLST Patient has POLST: No PD ED PE NORMAL - General General: Alert and oriented X 3, No acute distress, Well developed/nourished - HEENT HEENT: Atraumatic - Neck Neck: Supple, no meningeal sign, No adenopathy - Cardiac Cardiac: RRR, No murmur - Respiratory Respiratory: No respiratory distress, Clear bilaterally - Abdomen Abdomen: Normal bowel sounds, Soft. No: Non tender (Right upper quadrant abdominal pain without guarding or rebound. Also pain within the right CVA region and flank.) - Back Back: No: No CVA TTP (right) - Derm Derm: Normal color, Warm and dry, No rash - Extremities Extremities: No deformity - Neuro Neuro: Alert and oriented X 3, under trimmer 2-12 intact Eye Opening: Spontaneous Motor: Obeys Commands Verbal: Oriented GCS Score: 15 Results - Vitals Vitals: Vital Signs - 24 hr 07/14/23 07/14/23 16:17 17:36 Temperature 36.7 C Heart Rate 79 79 Respiratory 16 20 Rate Blood Pressure 143/88 H 145/81 H O2 Saturation 97 95 Oxygen O2 Source Room air - Labs Labs: Laboratory Tests 07/14/23 07/14/23 07/14/23 16:59 16:59 17:02 WBC 11.0 H RBC 5.51 H Hgb 15.4 Hct 48.1 H MCV 87.3 MCH 27.9 MCHC 32.0 RDW 12.7 Plt Count 392 MPV 9.4 Neut # (Auto) 7.8 H Lymph # (Auto) 2.1 [place] # (Auto) 0.9 Eos # (Auto) 0.1 Baso # (Auto) 0.1 Absolute Nucleated RBC 0.00 Nucleated RBC % 0.0 Sodium 137 Potassium 3.8 Chloride 100 L Carbon Dioxide 29 Anion Gap 8.0 BUN 11 Creatinine 1.0 Estimated GFR (MDRD) 55 L Glucose 102 Calcium 10.2 Total Bilirubin 0.6 AST 22 ALT 20 Alkaline Phosphatase 100 Total Protein 7.5 Albumin 4.9 Globulin 2.6 Albumin/Globulin Ratio 1.9 Lipase 27 Urine Color YELLOW Urine Clarity HAZY Urine pH 6.0 Ur Specific [place] <=1.005 Urine Protein NEGATIVE Urine Glucose (UA) NEGATIVE Urine Ketones NEGATIVE Urine Occult Blood TRACE-INTA Urine Nitrite NEGATIVE Urine Bilirubin NEGATIVE Urine Urobilinogen 0.2 (NORMAL) Ur Leukocyte Esterase TRACE H Urine RBC 0-5 Urine WBC 6-10 H Ur Squamous Epith Cells NONE SEEN Urine Bacteria Few Ur Microscopic Review INDICATED Urine Culture Comments INDICATED - Rads (name of study) Abd US Relevant Findings:: Other (Per chief technologist: 1.7 cm stone within the gallbladder. No gallbladder wall thickening. Common bile duct measures 0.4 cm. No pericholecystic fluid) CT abd Relevant Findings:: Final report received (No acute abnormality identified. No small bowel obstruction. Diverticulosis no free fluid. Stone at the gallbladder neck measuring 1.7 cm. No pericholecystic fluid. No hydronephrosis.) PD Medical Decision Making - ED course Complexity details: reviewed results, re-evaluated patient, d/w patient, d/w hematology oncology consultant (Erlin) ED course: 67-year-old female presents emergency department for evaluation of intermittent but now worsening right upper quadrant abdominal pain with radiation to the back. This has been ongoing now for about 2 weeks. She has some nausea and vomiting. Was seen by a local walk-in clinic provider who ordered an ultrasound of her abdomen which is scheduled for Sunday and she was unable to wait that long due to pain. On presentation she does have some pain in the right upper quadrant with an equivocal Valerio's. I did obtain CBC, electrolytes and urinalysis. Per my interpretation mild leukocytosis with white count 11,000. Normal hemoglobin. Her electrolytes were without acute abnormalities including her liver function test. Urine was not consistent with infection. An abdominal ultrasound was obtained which showed a 1.7 cm stone near the neck of the gallbladder with no gallbladder wall thickening or pericholecystic fluid. CBD was not dilated. Abdominal ultrasound demonstrated the same. I patient was administered a milligram of Dilaudid here in the emergency department and on reevaluation she is unable to tell me if the pain is better or worse. She states she simply feels numb and drugged up. I briefly discussed this case with Dr. Frost surgeon on-call. History, exam and imaging is most consistent with biliary colic but not acute cholecystitis. I discussed with patient typical regimens to manage pain at home to include NSAID medication, Bentyl, as needed narcotics and nausea medicines. This plan was discussed with the patient and her son-in-law at the bedside and she does feel like she can try to manage this at home. A prescription for oxycodone and Bentyl will be sent to the [facility] in [place]. She will request referral to surgery by her PCP. Emergent return precautions for worsening symptoms was discussed. I am prescribing a short course of short-acting opioid pain medication for this patient. I have reviewed the patients LOAN COORDINATOR and no concerning findings were noted. I have discussed that the opioids are for short term therapy only, and will not be refilled from the ED. Departure - Departure Disposition: Home, Self Care Clinical Impression: Biliary colic Gallstone Qualifiers: Cholecystitis presence: without cholecystitis Biliary obstruction: without biliary obstruction Qualified Code(s): K80.20 - Calculus of gallbladder without cholecystitis without obstruction Condition: Stable Instructions: ED Gallstone W Biliary Colic Prescriptions: Dicyclomine [Bentyl] 10 mg PO QID PRN #30 cap PRN Reason: Pain >8 Oxycodone HCl/Acetaminophen [Percocet 5-325 mg Tablet] 1 - 2 each PO Q6H PRN #14 tablet PRN Reason: pain Comments: Kamille you do have a 1.7 cm stone in your gallbladder near the neck of the gallbladder. This does not appear to be causing inflammation of the gallbladder. Your primary care doctor however does need to make an urgent referral for you to surgery for follow-up. In order to manage the symptoms I recommend that you use the nausea medicine at home for nausea and vomiting. You can take ibuprofen 600 mg with some food 2-3 times a day for discomfort. A limited prescription of oxycodone has also been sent to the pharmacy to be used for severe pain only. Bentyl, is a smooth muscle relaxer that can help with pain in the gallbladder. This can be used 3-4 times a day as needed for pain as well. For the next 24 hours I recommend a clear liquid diet. As your pain improves then you can advance with simple foods such as bananas, rice, dry toast and applesauce. If you are having worsening pain despite these medications, uncontrolled vomiting, fevers then you do need to return to the ER for a second evaluation. I am prescribing a short course of narcotic pain medication for you. These are potentially dangerous and addictive medications that should be used carefully. These medications may constipate you. Take an fceg-vhe-ifyxzgg stool softener (docusate) twice daily with plenty of water while taking these medications. If you go 24 hours without a bowel movement, take erwf-nvj-pysvezl miralax, per package instructions. Do not drink or drive while taking these medications. If you received narcotic or sedating medications while in the emergency department, do not drive for 24 hours. Store this medication in a safe, secure place and out of reach of children. It is a violation of federal law to give or sell this medication to another person or to use in a manner other than prescribed. The ED will not refill narcotic prescriptions, including prescriptions lost or stolen. To dispose of unwanted medications: 1. [facility] at [address] in [place] has a medication drop box. They accept prescription medications (in pill form) Sunday through Sunday 9:00 a.m. to 5:00 p.m. 2. The [facility] [employer] accepts prescription medications (in pill form only) for disposal year round. Call for more information. 3. Contact the [facility] for the next [facility] sponsored prescription drug collection event. , [phone], or [phone]; Note that many narcotic pain relievers also contain Tylenol/acetaminophen. Please ensure that your total dose of acetaminophen from all sources does not exceed 3 g (3000 mg) per day. Forms: PCP List
[2023-07-14 17:09] LABS: BILIRUBIN,URINE NEGATIVE (NEGATIVE); GLUCOSE, URINE (UA) NEGATIVE (NEGATIVE); KETONES,URINE (UA) NEGATIVE (NEGATIVE); LEUKOCYTE ESTERASE, URINE TRACE (NEGATIVE); NITRITE,URINE NEGATIVE (NEGATIVE); OCCULT BLOOD,URINE TRACE-INTA (NEGATIVE); PROTEIN,URINE NEGATIVE (NEGATIVE); UROBILINOGEN,URINE 0.2 (NORMAL) E.U./dL (NORMAL)
[2023-07-14 17:09] LABS: BASOPHILS # (AUTO) 0.1 10^3/uL (0.0-0.1); BASOPHILS % (AUTO) 0.5 %; EOSINOPHILS # (AUTO) 0.1 10^3/uL (0.0-0.7); EOSINOPHILS % (AUTO) 0.7 %; HCT - HEMATOCRIT 48.1 % (37.0-47.0); HGB - HEMOGLOBIN 15.4 g/dL (12.0-16.0); LYMPHOCYTES # (AUTO) 2.1 10^3/uL (1.5-3.5); MEAN CORPUSCULAR HEMOGLOBIN 27.9 pg (27.0-31.0); MEAN CORPUSCULAR VOLUME 87.3 fL (81.0-99.0); MEAN PLATELET VOLUME 9.4 fL (7.9-10.8); MONOCYTES # (AUTO) 0.9 10^3/uL (0.0-1.0); MONOCYTES % (AUTO) 8.5 %; NEUTROPHILS # (AUTO) 7.8 10^3/uL (1.5-6.6); PLT - PLATELET COUNT 392 10^3/uL (130-450); RED BLOOD COUNT 5.51 10^6/uL (4.20-5.40); RED CELL DISTRIBUTION WIDTH 12.7 % (12.0-15.0)
[2023-07-14 17:14] LABS: CLARITY,URINE HAZY (CLEAR)
[2023-07-14 17:22] LABS: RBC,URINE 0-5 /HPF (0-5)
[2023-07-14 17:23] LABS: BACTERIA,URINE Few /HPF (None Seen); SQUAMOUS EPITHELIAL CELL,UR NONE SEEN (<= Few)
[2023-07-14 17:24] LABS: ALBUMIN 4.9 g/dL (3.2-5.5); ALBUMIN/GLOBULIN RATIO 1.9 (1.0-2.2); BILIRUBIN,TOTAL 0.6 mg/dL (0.2-1.0); CALCIUM 10.2 mg/dL (8.5-10.3); POTASSIUM 3.8 mmol/L (3.5-4.5); TOTAL PROTEIN 7.5 g/dL (6.4-8.9)
--- NOTE | 2023-07-14 18:23 | Ultrasound Report ---
PROCEDURE: Abdomen Limited INDICATIONS: ? Gb colic TECHNIQUE: Real-time focused scanning was performed of the abdomen, with image documentation. COMPARISONS: None available at the time of this dictation. FINDINGS: Liver: The liver demonstrates enlarged size. The liver demonstrates moderately increased echogenici ty, which limits ultrasound sensitivity for detection of masses. The main portal vein demonstrates no rmal size and hepatopedal flow. Gallbladder: 1.7 cm gallstone can be seen near the gallbladder neck. The gallbladder wall is minimall y thickened at 4 mm. No pericholecystic fluid is seen. The sonographic Valerio's sign is ambiguous, gi brad overall abdominal tenderness. Biliary ducts: Intrahepatic bile ducts are non-dilated. duct caliber measures 4 mm. Normal is 6-7 m m or less in diameter, or 10 mm or less post-cholecystectomy. Pancreas: The pancreatic duct measures 4 mm. No additional pancreatic abnormality is seen. Right kidney: The right kidney is not well seen secondary to bowel gas. A dilated right renal pelvis versus a 1.4 cm cyst can be seen. IVC: Intrahepatic inferior vena cava is patent. Miscellaneous: No free abdominal fluid. IMPRESSION: Gallstone seen near the gallbladder neck, with minimal gallbladder wall thickening. No additional son ographic signs of cholecystitis are seen. No biliary dilatation. The sonographic Valerio's sign is regarded to be ambiguous, as the patient is tender over the abdomen in general and not specifically over the gallbladder. Mildly dilated pancreatic duct at 4 mm. Enlarged, fatty liver. Right kidney not well seen. There is a prominent renal pelvis versus a 1.4 cm cyst. Reviewed by: Martin Claudio MD on 07/14/2023 5:22 PM JACINDA Approved by: Martin Claudio MD on 07/14/2023 5:22 PM JACINDA Station ID: [id number]
[2023-07-14] MEDS ORDERED: iohexoL-300 100 ML VIAL IVP ONE (19:13)
--- NOTE | 2023-07-14 19:37 | CT Report ---
PROCEDURE: ABDOMEN/PELVIS W INDICATIONS: right CVA/flank pain CONTRAST: 100ml omni 300 TECHNIQUE: After the administration of intravenous contrast, 5 mm thick sections acquired from the diaphragms to the symphysis. 5 mm thick coronal and sagittal reformats were acquired. For radiation dose reducti on, the following was used: automated exposure control, adjustment of mA and/or kV according to tereza ent size. COMPARISON: Same day abdominal ultrasound. FINDINGS: Image quality: Excellent. Lung bases and heart: No pleural effusion. Small hiatal hernia. Liver: No cyst in the left lobe of liver. Gallbladder and biliary tree: Stone near the gallbladder neck measuring 1.7 cm. No. Cholecystectomy f luid. Spleen: No splenomegaly. Pancreas: No pancreatic ductal dilation. Adrenals: No adrenal nodule. Kidneys and ureters: No hydronephrosis. No renal cystic lesion which requires follow up. Right peripe lvic cyst. No solid mass. Bowel and peritoneum: No bowel distension. No pathologic free fluid. Diverticulosis. No diverticuliti s. The appendix is not dilated. Lymph nodes: No central or retroperitoneal adenopathy. Vessels: No infrarenal aortic aneurysm. PELVIS Reproductive organs: Calcified uterine fibroid. Retroverted uterus. Bladder: No abnormal wall thickening, accounting for underdistention. Pelvic lymph nodes: No pelvic adenopathy by size criteria. Bones: No aggressive osseous abnormality. Other: No significant ventral or inguinal hernia. IMPRESSION: 1. No acute abnormality identified. No small bowel obstructive. Diverticulosis. No free fluid. 2. Stone at the gallbladder neck measuring 1.7 cm. No pericholecystic fluid. 3. No hydronephrosis. Reviewed by: Randell Mancera MD on 07/14/2023 7:36 PM PDT Approved by: Randell Mancera MD on 07/14/2023 7:36 PM PDT Station ID: [id number]
[2023-07-14] MEDS ORDERED: KETOROLAC 30 MG/ML VIAL IVP STA (20:15)
[2023-07-14] MEDS ORDERED: oxyCODONE/ACET 5/325 Prepack 4 PO STA (21:09)
[2023-07-14 21:32] VITALS: BP 147/79; O2SAT 96
== END 2023-07-14 21:30 | disposition home or self-care (01) ==
LOC: ED 16:10
DX: K80.20 Calculus of gallbladder without cholecystitis without obstruction (principal); K80.50 Calculus of bile duct without cholangitis or cholecystitis without obstruction
CPT/HCPCS: 36415; 74177; 76705; 80053; 81001; 83690; 85025; 87086; 96374; 96375; 99284; J1170; Q9967; 81003

== ENCOUNTER 2023-07-19 12:20 | Day surgery (SDC) | payer OTHER ==
[2023-07-19] MEDS ORDERED: LACTATED RINGERS 1,000 ML IV ONE ×2 (12:31→16:18)
[2023-07-19] MEDS ORDERED: ceFAZolin 2 GM VIAL ONE (12:37)
[2023-07-19] MEDS ORDERED: BUPIVACAINE 0.25% PF 30 ML VIAL ONE ×2 (12:52→13:46)
--- NOTE | 2023-07-19 13:04 | ANESTHESIA ---
Pre-Anesthesia VS, & Labs - Diagnosis cholelithiasis - Procedure lap sharath Vital Signs: Temp Pulse Resp BP Pulse Ox O2 Flow Rate 36.7 C 75 14 135/77 H 95 0 07/19/23 12:46 07/19/23 12:46 07/19/23 12:46 07/19/23 12:46 07/19/23 12:46 07/19/23 12:46 Height: 5 ft 3 in Weight (kg): 79 kg Body Mass Index: 30.8 BMI Classification: Obese - NPO >8 hours - Is Patient ?: No Home Medications and Allergies Home Medications: Ambulatory Orders Fluticasone [Flonase] 1 sprays SUJIT DAILY 07/18/23 traZODone [Desyrel] 75 mg PO HS 07/18/23 traZODone [Desyrel] 75 mg PO HS 07/19/23 Cholecalciferol [Vitamin D3] 1 tab PO DAILY 09/13/21 Fluticasone [Flonase] 1 sprays SUJIT DAILY 07/18/23 traZODone [Desyrel] 75 mg PO HS 07/18/23 traZODone [Desyrel] 75 mg PO HS 07/19/23 Allergies/Adverse Reactions: Allergies Allergy/AdvReac Type Severity Reaction Status Date / Time sulfamethoxazole Allergy Mild Rash Verified 07/14/23 16:21 [From ] trimethoprim [From ] Allergy Mild Rash Verified 07/14/23 16:21 Anes History & Medical History - Anesthetic History Anesthesia Complications: reports: No previous complications Family history of Anesthesia Complications: Denies Family history of Malignant Hyperthermia: Denies - Medical History Cardiovascular: reports: None Pulmonary: reports: Other Gastrointestinal: reports: Other Urinary: reports: None, Incontinence Neuro: reports: None Musculoskeletal: reports: None Endocrine/Autoimmune: reports: None Blood Disorders: reports: None Smoking Status: Never smoker Psychosocial: reports: No issues indicated History of Cancer?: No - Surgical History Eyes Ears Nose Throat (EENT): reports: Tonsil/Adenoidectomy, Other Gynecologic: reports: 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 Orthopedic: reports: Other Exam General: Alert, Oriented x3, Cooperative Dental: WNL Mouth Openin Fingerbreadth Neck Mobility: Normal Mallampati classification: I Thyromental Distance: 4-6 cm Respiratory: Lungs clear Cardiovascular: Regular rate Plan Anesthesia Type: General Consent for Procedure(s) Verified and Reviewed: Yes Code Status: Attempt Resuscitation ASA classification: 2-Mild systemic disease Is this case an emergency?: No
[2023-07-19] MEDS ORDERED: HYDROmorphone 0.5 MG/0.5 ML SYRINGE IVP PRN (13:21)
[2023-07-19] MEDS ORDERED: NALOXONE 0.4 MG/ML VIAL IVP PRN (13:21)
[2023-07-19] MEDS ORDERED: ATROPINE ABBOJECT 1 MG/10 ML SYRINGE IVP PRN (13:21)
[2023-07-19] MEDS ORDERED: ONDANSETRON 4 MG/2 ML VIAL IVP PRN ×2 (13:21→15:29)
[2023-07-19] MEDS ORDERED: MORPHINE 2 MG/ML CARPUJECT IVP PRN (13:21)
[2023-07-19] MEDS ORDERED: ePHEDrine 50 MG/ML VIAL IVP PRN (13:21)
[2023-07-19] MEDS ORDERED: LACTATED RINGERS 1,000 ML IV SCH (14:00)
[2023-07-19] MEDS ORDERED: ROCURONIUM 50 MG/5 ML VIAL ONE ×2 (14:09→14:32)
[2023-07-19] MEDS ORDERED: fentaNYL 100 MCG/2 ML VIAL ONE ×2 (14:10→15:58)
[2023-07-19] MEDS ORDERED: BUPIVACAINE 0.25% PF 30 ML VIAL SUBQ ONE (14:27)
[2023-07-19] MEDS ORDERED: ONDANSETRON 4 MG/2 ML VIAL ONE (14:31)
[2023-07-19] MEDS ORDERED: DEXAMETHASONE 4 MG/ML VIAL ONE (14:31)
[2023-07-19] MEDS ORDERED: PROPOFOL 500 MG/50 ML 500 MG/50 ML VIAL ONE (14:32)
[2023-07-19] MEDS ORDERED: GLYCOPYRROLATE 1 MG/5 ML VIAL ONE (14:39)
[2023-07-19] MEDS ORDERED: SUGAMMADEX 200 MG/2 ML VIAL IVP ONE (15:08)
[2023-07-19] MEDS ORDERED: oxyCODONE 5 MG TABLET PO PRN (15:29)
[2023-07-19] MEDS ORDERED: LACTATED RINGERS 100 ML IV ONE ×2 (15:29)
--- NOTE | 2023-07-19 15:44 | OPERATIVE REPORT ---
Operative Report - General Procedure Date: 07/19/23 Planned Procedure: lap sharath Pre-Op Diagnosis: chronic cholecystitis, symptomatic Procedure Performed: lap sharath Post Op Diagnosis: same - Procedure Note Primary Surgeon: alyssa ray Anesthesia Technique: General ET tube, Local Pathology: gallbladder Estimated Blood Loss (mL): 2 Drain/Tube Type: Other (none) Indications: gallbladder pain and nausea Findings: as above omentum adherent to midline cephalad of the umbilicus Complications: none - Other Other Information/Narrative: The patient was properly identified, brought to the operating room and placed in supine position. Sequential compression devices were placed. General endotracheal anesthesia was induced. The patient was prepped and draped in a sterile fashion and given preoperative antibiotics. Local anesthetic was given to incision areas. An incision was made in the periumbilical area. Dissection proceeded down to fascia. The fascia was incised lifted upwards and abdomen entered with a Veress needle. CO2 was insufflated to a pressure of 15. An 11 mm trocar followed by a 30 degree scope was placed. There was no evidence of injury from Veress needle or trocar placement. Under direct vision 2 5 mm trochars were placed in the right upper quadrant and an 11 mm trocar was placed in the epigastrium. Body of the gallbladder was retracted anterior. Lateral attachments were partially taken down further mobilizing the gallbladder more anterior and away from the duodenum. The infundibulum of the gallbladder was then retracted right lateral and caudad. With minimal use of cautery a large bare cystic plate area or window was carefully created. The cystic duct was inspected from right lateral and left lateral positions. [] The cystic duct was then clipped at the gallbladder and 3 times slightly proximal and sharply divided. The cystic artery was clipped at the gallbladder and then 2 times slightly proximal and sharply divided. The gallbladder was mobilized off from the bed of the liver with hook cautery. The gallbladder was placed in Endo Catch bag and brought out through the epigastric trocar site. Hemostasis was assured. Trochars were removed under direct vision. Fascia at the larger trocar sites was closed with [id number] are running 0 Vicryl suture. Subcutaneous tissue was irrigated and skin closed with interrupted 4-0 Monocryl. Dressings were applied. Patient tolerated the procedure well was awakened and brought to recovery in good condition.
[2023-07-19] MEDS: fentaNYL 100 MCG/2 ML VIAL IVP PRN ×2 (15:51→16:00)
[2023-07-19] MEDS ORDERED: HYDROmorphone 0.5 MG/0.5 ML SYRINGE ONE (16:18)
[2023-07-19 17:56] VITALS: O2SAT 96
[2023-07-19 19:08] VITALS: BP 140/76
--- NOTE | 2023-07-19 19:15 | ANESTHESIA POST OP EVALUATION ---
Anesthesia Post Eval - Post Anesthesia Eval Vitals: Last Vital Signs Temp 36.8 C 07/19/23 19:03 Pulse 71 07/19/23 19:03 Resp 16 07/19/23 19:03 BP 140/76 H 07/19/23 19:03 Pulse Ox 96 07/19/23 19:03 O2 Flow Rate 0 07/19/23 12:46 CV Function Including HR & BP: Stable Pain Control: Satisfactory Nausea & Vomiting: Negative Mental Status: Baseline Respiratory Status: Airway Patent Hydration Status: Satisfactory Anesthesia Complications: None
== END 2023-07-19 19:25 | disposition home or self-care (01) ==
LOC: SDS 12:20 → MS3 16:27 → SDS 19:25
PROVIDERS: ATTEND Surgery
PROC: 0FT44ZZ Resection of Gallbladder, Percutaneous Endoscopic Approach (ICD-10-PCS; principal; 2023-07-19 13:30)
DX: K80.10 Calculus of gallbladder with chronic cholecystitis without obstruction (principal); E66.9 Obesity, unspecified; Z68.30 Body mass index [BMI] 30.0-30.9, adult
CPT/HCPCS: 47562; A9270; J1170; J7120

== ENCOUNTER 2023-07-22 13:22 | Emergency (ER) | payer OTHER ==
[2023-07-22 13:34] VITALS: BP 140/78; O2SAT 96
[2023-07-22] MEDS ORDERED: PROPARACAINE 0.5% OPHTH DROPS 15 ML EACHEYE STA (13:48)
--- NOTE | 2023-07-22 14:05 | ED Physician Documentation ---
PD CHAPA HEENT - Stated complaint Stated Complaint: EYE LID SWELLING - Chief complaint Chief Complaint: Heent - History obtained from History obtained from: Patient - Additional information Additional information: The patient comes to the emergency department chief complaint of left upper eyelid swelling That she woke up with this morning. She denies any firmness, itching, or pain. She just had gallbladder surgery couple of days ago and is wondering if it is related to that. She states she did not have a reaction to any of the medication that she received and denies any swelling anywhere else. No rash. She states she is concerned because she had "I shingles" a few months ago and is wondering if it is come back. She states at that time, she had very inflamed eyes, plus lesions on the tip of her nose. She states that this is not as uncomfortable as what she experienced the first time, but she does have a little bit of eye redness. No other complaints at this time. No fevers or chills. PD PAST MEDICAL HISTORY - Past Medical History Past Medical History: Yes Cardiovascular: None Respiratory: Other Neuro: None Endocrine/Autoimmune: None GI: Other : None, Incontinence HEENT: Chronic sinusitis, Other Psych: Anxiety Musculoskeletal: None - Past Surgical History Past Surgical History: Yes Ortho: Other /[employer]: 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 HEENT: Tonsil/Adenoidectomy, Other - Present Medications Home Medications: Ambulatory Orders Medication Instructions Recorded Confirmed Cholecalciferol [Vitamin D3] 1 tab PO DAILY 09/13/21 07/18/23 Ondansetron Odt [Zofran] 4 mg TL Q6H PRN #10 tablet 05/19/23 07/18/23 Dicyclomine [Bentyl] 10 mg PO QID PRN #30 cap 07/14/23 07/18/23 Oxycodone HCl/Acetaminophen 1 - 2 each PO Q6H PRN #14 tablet 07/14/23 07/18/23 [Percocet 5-325 mg Tablet] Fluticasone [Flonase] 1 sprays SUJIT DAILY 07/18/23 07/18/23 traZODone [Desyrel] 75 mg PO HS 07/18/23 07/18/23 Ondansetron Odt [Zofran Odt] 4 mg PO Q6H PRN #15 tablet 07/19/23 Ondansetron Odt [Zofran Odt] 4 mg PO Q6H PRN #15 tablet 07/19/23 Oxycodone HCl/Acetaminophen 1 tab PO Q6HR PRN #30 tablet 07/19/23 [Percocet 5-325 mg Tablet] Oxycodone HCl/Acetaminophen 1 tab PO Q6HR PRN #30 tablet 07/19/23 [Percocet 5-325 mg Tablet] traZODone [Desyrel] 75 mg PO HS 07/19/23 07/19/23 Gentamicin 0.3% Ophth Drops 1 drops OPTH BID #5 ml 07/22/23 [Garamycin] - Allergies Allergies/Adverse Reactions: Allergies Allergy/AdvReac Type Severity Reaction Status Date / Time sulfamethoxazole Allergy Mild Rash Verified 07/22/23 13:24 [From ] trimethoprim [From ] Allergy Mild Rash Verified 07/22/23 13:24 - Social History Does the pt smoke?: No Smoking Status: Never smoker Does the pt drink ETOH?: No Does the pt have substance abuse?: No - Immunizations Immunizations are current?: Yes - POLST Patient has POLST: No PD ED PE NORMAL - Vitals Vital signs reviewed: Yes - General General: Alert and oriented X 3, No acute distress, Well developed/nourished - HEENT HEENT: Atraumatic, PERRL, EOMI, Moist mucous membranes, Other (Mild conjunctival injection and upper and lower eyelid swelling, left greater than right. No drainage. Fluorescein exam negative both eyes.) - Neck Neck: Supple, no meningeal sign - Respiratory Respiratory: No respiratory distress - Derm Derm: Normal color, Warm and dry, No rash - Extremities Extremities: No deformity - Neuro Neuro: Alert and oriented X 3 - Psych Psych: Normal mood, Normal affect Results - Vitals Vitals: Oxygen O2 Source Room air PD Medical Decision Making - ED course Complexity details: considered differential, d/w patient, d/w family ED course: I discussed with the patient that her eyelids do not appear infected and that while she may have a mild conjunctivitis, she certainly does not display any signs of a herpetic eye infection of any kind. I will prescribe antibiotic eyedrops for presumed conjunctivitis. The patient does not appear to have an allergic reaction, though we have discussed that her symptoms may be due to reaction from something she has been exposed to in the environment. At this point in time, the patient is stable for discharge home. We have discussed usual indications for follow-up and return. Departure - Departure Disposition: 01 Home, Self Care Clinical Impression: Conjunctivitis Qualifiers: Conjunctivitis type: acute Acute conjunctivitis type: unspecified Laterality: bilateral Qualified Code(s): H10.33 - Unspecified acute conjunctivitis, bilateral Condition: Stable Instructions: ED Conjunctivitis Nonspecific Prescriptions: Gentamicin 0.3% Ophth Drops [Garamycin] 1 drops OPTH BID #5 ml Comments: Your eye exam actually looks quite good. You have some mild inflammation of your eyes themselves but the surfaces look great. There is no evidence of a recurrence of your shingles at this time. Its not clear exactly why your eyelids are swelling, but this does not appear to represent a bacterial infection of the flush of your eyelids. You may be experiencing some sort of reaction to something your eyes were exposed to, or you your puffiness may be due to all of the medications and physical disruption of the last few days since your surgery. Regardless, this appears to be a benign process which will be expected to resolve on its own over the next week or so. A prescription for antibiotic drops has been electronically transmitted to the [facility] pharmacy in [place]. Please pick this up today and start it. You may apply cold compresses to your eyes to help with some of the swelling. You may notice the swelling is worse in the morning but should improve as you are up and about. Forms: PCP List Discharge Date/Time: 07/22/23 14:13
== END 2023-07-22 14:13 | disposition home or self-care (01) ==
LOC: ED 13:22
DX: H10.33 Unspecified acute conjunctivitis, bilateral (principal); Z79.899 Other long term (current) drug therapy
CPT/HCPCS: 99282; 99283; J3490

== ENCOUNTER 2023-10-03 07:32 | Outpatient (CLI) | payer OTHER ==
[2023-10-03 12:39] LABS: BASOPHILS # (AUTO) 0.1 10^3/uL (0.0-0.1); BASOPHILS % (AUTO) 0.6 %; EOSINOPHILS # (AUTO) 0.1 10^3/uL (0.0-0.7); EOSINOPHILS % (AUTO) 1.1 %; HCT - HEMATOCRIT 47.6 % (37.0-47.0); LYMPHOCYTES # (AUTO) 2.8 10^3/uL (1.5-3.5); LYMPHOCYTES % (AUTO) 27.5 %; MEAN CORPUSCULAR HGB CONC 31.5 g/dL (32.0-36.0); MEAN CORPUSCULAR VOLUME 88.8 fL (81.0-99.0); MEAN PLATELET VOLUME 9.9 fL (7.9-10.8); MONOCYTES # (AUTO) 0.6 10^3/uL (0.0-1.0); MONOCYTES % (AUTO) 5.8 %; NEUTROPHILS # (AUTO) 6.7 10^3/uL (1.5-6.6); NEUTROPHILS % (AUTO) 64.7 %; PLT - PLATELET COUNT 433 10^3/uL (130-450); RED BLOOD COUNT 5.36 10^6/uL (4.20-5.40); RED CELL DISTRIBUTION WIDTH 13.3 % (12.0-15.0); WHITE BLOOD COUNT 10.3 x10^3/uL (4.8-10.8)
[2023-10-03 13:23] LABS: ALBUMIN 4.3 g/dL (3.2-5.5); ALBUMIN/GLOBULIN RATIO 1.5 (1.0-2.2); BILIRUBIN,TOTAL 0.7 mg/dL (0.2-1.0); CALCIUM 9.7 mg/dL (8.5-10.3); CREATININE 0.7 mg/dL (0.6-1.3); POTASSIUM 3.8 mmol/L (3.5-4.5); TOTAL PROTEIN 7.1 g/dL (6.4-8.9)
[2023-10-03 14:58] LABS: THYROID STIMULATING HORMONE 2.37 uIU/mL (0.34-5.60)
== END 2023-10-03 07:33 | disposition home or self-care (01) ==
LOC: LAB.N 07:32
PROVIDERS: ATTEND Nurse Practitioner
DX: R53.83 Other fatigue (principal)
CPT/HCPCS: 36415; 80053; 82533; 84443; 85025; 85651

== ENCOUNTER 2023-10-29 12:11 | Outpatient (CLI) | payer OTHER ==
--- NOTE | 2023-10-29 17:41 | CT Report ---
PROCEDURE: Chest WO INDICATIONS: WEIGHT LOSS TECHNIQUE: A CT scan of the chest was performed. Intravenous contrast media was not administered. Images were re corded and evaluated at appropriate window settings. Reformats: axial MIP of the chest, coronal and s agittal. For radiation dose reduction, the following was used: automated exposure control, adjustment of mA and/or kV according to patient size. COMPARISON: None. FINDINGS: Image quality: Excellent. Lungs and pleura: No consolidation. No pleural effusions. No pneumothorax. 3 mm subpleural pulmonary nodule in the superior segment right lower lobe, 4/51, is statistically benign given small size. No other nodules or masses. Mediastinum: Heart size is normal. No pericardial effusion. Ectatic ascending thoracic aorta at 3.9 c m in AP diameter. Normal caliber pulmonary artery. No mediastinal adenopathy. No anterior or posterio r mediastinal mass. Normal esophagus without hiatal hernia Chest wall and lower neck: No suspicious chest wall masses. The thyroid gland is normal. No axillary or supraclavicular adenopathy by size. Bones: No aggressive osseous abnormality. Upper Abdomen: Surgically absent gallbladder. Otherwise unremarkable upper abdominal organs. IMPRESSION: 1. No findings to explain weight loss. 2. Ectatic ascending thoracic aorta. Consider follow-up imaging surveillance in one year. Reviewed by: Melody Chamberlain MD on 10/29/2023 5:40 PM PST Approved by: Melody Chamberlain MD on 10/29/2023 5:40 PM PST Station ID: [id number]
== END 2023-10-29 12:12 | disposition home or self-care (01) ==
LOC: DI 12:11
PROVIDERS: ATTEND Nurse Practitioner
DX: R63.4 Abnormal weight loss (principal); I77.810 Thoracic aortic ectasia